=== PATIENT | female | born 1990 | race Caucasian/White ===

== ENCOUNTER → 2020-05-10 10:23 | Outpatient (CLI) | payer OTHER, SELFPAY ==
--- NOTE | ~2020-05-10 | US_ITS ---
US breast LT complete DATE: 05/10/2020 10:49 INDICATION: Left breast lump for 8 months, without change in size. Maternal great grandmother had florecita ast cancer. TECHNIQUE: Real-time and color flow imaging targeted to the left breast lump at 2:00 8 cm from nipple COMPARISON: None FINDINGS: There is a circumscribed mildly lobular hypoechoic solid mass with through transmission and posterior enhancement at the area of clinical complaint of left breast lump at 2:00 8 cm from the ni pple. There is mild internal vascularity on color flow imaging. The sonographic features are most con sistent with probable benign fibroadenoma. IMPRESSION: BI-RADS Category 3: Probable benign finding Recommendation: 6 month left targeted breast ultrasound follow-up Reviewed, dictated and finalized at [facility] Reviewed, dictated and finalized at [facility].
== END ==
PROVIDERS: PCP Family Medicine; Visit Provider Physician Assistant
DX: N63.0 Unspecified lump in unspecified breast (principal); R92.8 Other abnormal and inconclusive findings on diagnostic imaging of breast
CPT/HCPCS: 76641

== ENCOUNTER 2023-04-23 07:23 | Outpatient (RCR) | payer OTHER, SELFPAY ==
[2023-04-04 14:07] VITALS: BP 141/55; PULSE 91
[2023-04-11 14:08] VITALS: BP 137/73; PULSE 86
[2023-04-17 13:39] VITALS: BP 129/72; PULSE 79
[2023-04-23 07:48] VITALS: BP 147/84; PULSE 88
== END 2023-07-03 23:59 | disposition home or self-care (01) ==
LOC: ANHOBOP 07:23
PROVIDERS: PCP Family Medicine; Visit Provider Obstetrics & Gynecology
DX: O16.3 Unspecified maternal hypertension, third trimester (principal); Z3A.34 34 weeks gestation of pregnancy; Z3A.35 35 weeks gestation of pregnancy; Z3A.36 36 weeks gestation of pregnancy; Z3A.37 37 weeks gestation of pregnancy
CPT/HCPCS: 59025

== ENCOUNTER 2023-04-30 16:57 | Inpatient (IN) | payer OTHER, SELFPAY ==
[2023-04-30] VITALS (27 sets, daily range): BP systolic 107–150; BP diastolic 51–89; PULSE 80–92; TEMP 36.6; BMI 32.8
--- NOTE | 2023-04-30 17:26 | LDADM ---
This patient, Maya Cavanaugh, was admitted to Labor/Delivery/Recovery 108 on 04/30/23 at 16:57. Plans for labor, pain management and were discussed with patient. Patient/family oriented to hospital policies and general routines including ID bracelet, bed and alarms, visiting hours, pain management, procedures, bathroom and other care routines, personal items, smoking policy, room service/diet and guest tray routines, security routines, and visiting hours. Patient/Family are encouraged to report perceived risks to care and to ask questions if they do not understand what they are told or what they should do. See OBIX for further documentation.
[2023-04-30 17:35] LABS: Basophils Percent Auto 0.3 % (0.2-1.2); Eosinophils Absolute Auto 0.2 K/mm3 (0-0.3); Eosinophils Percent Auto 1.4 % (0-4.4); Hematocrit 34.4 % (37.0-47.0); Hemoglobin 11.4 g/dL (12.0-15.0); Immature Granulocyte Absolute 0.19 K/mm3 (0.00-0.031); Immature Granulocyte Percent A 1.8 % (0-0.5); Lymphocytes Absolute Auto 1.36 K/mm3 (0.9-3.2); Mean Corpuscular HGB Conc 33.1 g/dl (32-36); Mean Corpuscular Hemoglobin 29.9 pg (26-34); Mean Corpuscular Volume 90.3 fl (80-100); Mean Platelet Volume 9.7 fl (7.4-10.4); Monocytes Absolute Auto 0.7 K/mm3 (0.1-0.6); Monocytes Percent Auto 6.3 % (2.6-8.5); Neutrophils Absolute Auto 8.1 K/mm3 (1.3-6.7); Neutrophils Percent Auto 77.2 % (45.5-73.1); Platelet Count Result 213 k/mm3 (150-375); Red Blood Count 3.81 M/mm3 (4.2-5.4); White Blood Count 10.5 K/mm3 (4.5-10.0)
[2023-04-30] MEDS: DINOPROSTONE 10 MG VAG INSERT VAGINAL (18:05)
--- NOTE | 2023-04-30 18:46 | WPDANESEPP ---
Anes - Eval Pre Procedure Procedure: labor epidural Date/Time: 04/30/23 18:46 Surgeon: dimas Preop Diagnosis: pain during labor Pre Op Diagnosis: IOL Patient Data Age: 32 Gender: F Height: 1.73 m Weight: 98 kg Last Vital Signs Temp 36.6 C 04/30/23 17:21 Pulse 88 04/30/23 18:45 BP 134/77 04/30/23 18:45 O2 Del Method Room Air 04/30/23 17:24 Allergies Allergy/AdvReac Type Severity Reaction Status Date / Time diazepam AdvReac Unknown Unknown Verified 04/30/23 08:43 Home Medications Medication Instructions Recorded Confirmed Type docusate sodium 50 mg capsule 50 mg PO DAILY 11/27/22 04/30/23 History doxylamine succinate 25 mg tablet 25 mg PO QHS PRN Sleep 11/27/22 04/30/23 History (Unisom (doxylamine)) aspirin 81 mg tablet,delayed 81 mg PO BID 02/05/23 04/30/23 History release (Adult Low Dose Aspirin) omeprazole 20 mg capsule,delayed 20 mg PO DAILY 03/05/23 04/30/23 History release labetalol 100 mg tablet 100 mg PO BID 04/04/23 04/30/23 History Laboratory Tests 04/30/23 17:16 WBC 10.5 H K/mm3 (4.5-10.0) RBC 3.81 L M/mm3 (4.2-5.4) Hgb 11.4 L g/dL (12.0-15.0) Hct 34.4 L % (37.0-47.0) MCV 90.3 fl (80-100) MCH 29.9 pg (26-34) MCHC 33.1 g/dl (32-36) RDW 13.0 % (11.5-14.5) Plt Count 213 k/mm3 (150-375) MPV 9.7 fl (7.4-10.4) Immature Gran % (Auto) 1.8 H % (0-0.5) Neut % (Auto) 77.2 H % (45.5-73.1) Lymph % (Auto) 13.0 L % (18.3-44.2) [place] % (Auto) 6.3 % (2.6-8.5) Eos % (Auto) 1.4 % (0-4.4) Baso % (Auto) 0.3 % (0.2-1.2) Lymph # (Auto) 1.36 K/mm3 (0.9-3.2) [place] # (Auto) 0.7 H K/mm3 (0.1-0.6) Eos # (Auto) 0.2 K/mm3 (0-0.3) Baso # (Auto) 0.0 K/mm3 (0.0-0.1) Abs Immat Gran (auto) 0.19 H K/mm3 (0.00-0.031) Absolute Neuts (auto) 8.1 H K/mm3 (1.3-6.7) Absolute Nucleated RBC 0.0 K/mm3 (0.0-0.012) Nucleated RBC % 0.0 % (0.0-0.2) RPR Pending Blood Type O Positive Antibody Screen Pending Patient hx anesthesia problems: none Family hx anesthesia problems: none Results Review: All pre-operative results and documents have been reviewed as part of the pre-operative evaluation. [facility] Past Medical History Medical History Encounter for insertion of ParaGard IUD 2013? insertion Encounter for IUD removal Hypertension Irritable bowel syndrome (IBS) Suppression of menses Surgical History Surgical History History of gynecological procedure (~01/21/22) Paragard IUD removal History of left knee surgery x2 tendon repair Hx laparoscopic cholecystectomy 2013 Family History Family History Father Hypertension Mother Diabetes mellitus Hypertension Sibling Hypertension brother Grandparent Lung cancer maternal grandmother Brain malignant neoplasm paternal grandfather Other Family history of allergic disorder Family history of heart disease in male family member before age 55 Family history of kidney disease Social History Social History Smoking status: Never smoker Second hand tobacco smoke exposure: No Alcohol intake: current Drinks per week: 4 Alcohol use details: occasional Substance use: never Substance use type: does not use Lack of Transportation: No Lack of Food: Never True Current Housing: I Have Housing Concerned About Future Housing: No Difficulty Paying Gas/Electric Bills: No Difficulty Paying for Meds: No Currently Unemployed: No Education: Don't Know Difficulty w/ Childcare or Family Care: No Living arrangements: other Additional living arrangements comments: spouse Occupation/Education: occupation Additional occupation/
[2023-05-01] VITALS (183 sets, daily range): BP systolic 109–181; BP diastolic 52–106; PULSE 76–136; RESP 18–20; TEMP 36.4–37.3; O2SAT 94–100
[2023-05-01] MEDS: LABETALOL HCL 100 MG TABLET PO ×2 (05:58→19:35)
[2023-05-01] MEDS: LACTATED RINGERS 1,000 ML 125 ML IV CONT ×2 (06:50→10:09)
[2023-05-01] MEDS: AMPICILLIN 2 GM/NS 100 ML 2 GM/100 ML BAG IVPB (06:51)
[2023-05-01] MEDS: OXYTOCIN 30 UNITS/NS 500 ML 30 UNITS/500 ML BAG 4 UNITS IV CONT (07:00)
[2023-05-01] MEDS: AMPICILLIN 1 GM/NS 50 ML 1 GM/50 ML BAG IVPB ×2 (10:37→15:05)
[2023-05-01 10:54] LABS: Rapid Plasma Reagin Non-Reactive (NonReactive)
--- NOTE | 2023-05-01 18:58 | WPDHPUPDATE1 ---
History and Physical Update Update Date/Time: 05/01/23 18:58 History and Physical has been reviewed, including an updated exam of the patient. There are NO changes in the patient's condition. Risks, benefits, and alternatives have been discussed and questions answered. Patient agrees to proceed with procedure.
--- NOTE | 2023-05-01 18:58 | WPDOBADMIT ---
Obstetrics - Admit Note Admission Note: record reviewed. No pertinent additions to the history and/or any subsequent changes in the physical findings that are not consistent with the expected course of the were found. Additions to the history and/or subsequent changes in the physical findings follow. None.
--- NOTE | 2023-05-01 18:58 | PM.OBPRVD ---
OB - Delivery Note Procedure Events: Chronic Hypertension Intrapartal Events: Ineffetive Pushing/Maternal Exhaustion Induction method: Per Misoprostol Protocol Delivery augmentation: Rupture of Membranes and Pitocin Delivery monitor: Internal FHT and Internal Uterine Route of delivery: vacuum extraction Episiotomy description: None Laceration Description: Perineal - 2nd Degree Delivery repair: chromic Specimen: Yes Quantitative Blood Loss (ml): 500 Anesthesia type: Epidural Disposition: Floor Complications: None Narrative: patient prepped draped usual manner for this procedure. Maternal expulsive efforts brought the baby to +3 position and with maternal fatigue vacuum was placed and on the 2nd contraction vertex was delivered with a nuchal cord x2 noted and clamped and cut due to inability to be reduced. Placenta delivered spontaneously. Cervix vagina vulva were inspected with second-degree laceration noted. Uterus was well contracted. Vagina was approximated using 2-0 chromic running interlocking manner in the vaginal tissue deep tissue was then approximated as well and is subcuticular suture to approximate the perineum. Again uterus was well contracted no bleeding overall patient was doing well. Baby was brought to the nursery for CPAP overall was doing well. [place] Baby Weeks of gestation at delivery: 39 Infant gender: Male Weight (pounds): 8 Weight (ounces): 2 presentation: vertex Placenta delivery description: Spontaneous Cord Vessel Description: 3 Vessels, Nuchal Cord (X2) and Clamped/Cut [facility]G Delivery Billing Delivery Delivery: Delivery Charge
[2023-05-01] MEDS: OXYTOCIN 30 UNITS/NS 500 ML 30 UNITS/500 ML BAG 125 UNITS IV CONT (19:30)
--- NOTE | 2023-05-01 22:25 | PC.NURSE ---
Patient transferred to post room #286 per wheelchair from labor and delivery. Support person present. Oriented to unit, room, information board, rooming in, admission packet and security measures. Patient verbalizes understanding.
[2023-05-02] MEDS: ACETAMINOPHEN 325 MG TABLET 650 MG PO (00:09)
[2023-05-02 05:55] VITALS: BP 140/81; PULSE 95; RESP 20; TEMP 36.4
--- NOTE | 2023-05-02 08:36 | PM.OBDSVD ---
DS: Admitting Diagnosis Discharge Date 05/02/23 Admitting Diagnosis chronic hypertension intrauterine at term DS: Discharge Diagnosis Discharge Diagnosis (1) Chronic hypertension affecting : Code(s): O10.919 - Unspecified pre-existing hypertension complicating , unspecified trimester Status: Acute (2) Supervision of high risk , unspecified, third trimester: Code(s): O09.93 - Supervision of high risk , unspecified, third trimester Status: Acute OB - DS: Summary OB Procedures : None OB Procedures Intrapartum: Spontaneous Vag Delivery OB Procedures: : None Status at Discharge Functional status at discharge: independent ambulation Overall status at discharge: patient is back to baseline Time Spent with Patient Time attestation: Total time spent providing and/or coordinating discharge services: Time spent: Less than 30 minutes Exam Const: General: comfortable and no acute distress Resp: Effort & Inspection: normal respiratory effort Auscultation: clear to auscultation bilaterally Cardio: Rate: regular rate GI: GI Palp: Yes Soft to palpation Auscultation: normal bowel sounds Other: Fundus firm below umbilicus Psych: Appearance: grossly normal Mental Status: mental status grossly normal Affect: normal affect DS: Data Data Completed and Pending Pending studies at discharge: Pending at discharge 05/01/23 18:44 Surgical [PTH] Routine Labs on day of discharge: Labs from last 24 hours 04/30/23 17:16 RPR Non-reactive Discharge Plan Discharge Discharging Clinician: Javed Vaughan Patient Disposition: Home, Self-Care Activity: as tolerated and pelvic rest Diet: regular Patient Instructions: Antibiotic Form, Vaginal Delivery (DC) Stand Alone Forms: General Discharge Information Follow-up/Referrals: Stanton Sahu MD [Physician] - 1 Week (Blood pressure check) Discharge Medications: New acetaminophen 500 mg tablet 500 mg PO Q6H PRN (Reason: pain) Qty: 30 0RF ibuprofen 600 mg tablet 600 mg PO Q6H PRN (Reason: pain) Qty: 30 0RF Continued docusate sodium 50 mg capsule 50 mg PO DAILY Unisom (doxylamine) 25 mg tablet 25 mg PO QHS PRN (Reason: Sleep) aspirin [Adult Low Dose Aspirin] 81 mg tablet,delayed release (DR/EC) 81 mg PO BID omeprazole 20 mg capsule,delayed release(DR/EC) 20 mg PO DAILY labetalol 100 mg tablet 100 mg PO BID Rx Instructions: TAKE 1 TABLET BY MOUTH TWICE DAILY Date of admission: 04/30/23 16:57 Primary Care Provider: Bibiana Briggs Admitting Provider: Stanton Sahu Attending physician on admission: Stanton Sahu Condition: Stable
[2023-05-02 08:42] LABS: Hematocrit 29.8 % (37.0-47.0); Hemoglobin 9.7 g/dL (12.0-15.0)
[2023-05-02 09:05] VITALS: BP 142/71; PULSE 93; RESP 16; TEMP 36.6; O2SAT 99
[2023-05-02 09:32] VITALS: PULSE 93
[2023-05-02] MEDS: LABETALOL HCL 100 MG TABLET PO (09:32)
[2023-05-02] MEDS: DOCUSATE SODIUM 100 MG CAPSULE PO (09:33)
[2023-05-02] MEDS: WITCH HAZEL 40 PADS 1 PAD TOPICAL (09:33)
[2023-05-02] MEDS: BENZOCAINE 20% AER SPR (*SP) 56 GM CAN 1 SPRAY TOPICAL (09:33)
[2023-05-02] MEDS: POLYSACCHARIDE IRON COMPLEX 150 MG CAPSULE PO (09:33)
== END 2023-05-02 09:23 | disposition home or self-care (01) | DRG 807 ==
LOC: ANHLDR 05-01 11:47 → ANHOB2 05-02 08:38 → ANHLDR 05-05 11:14 → ANHOB2 05-05 11:14
PROVIDERS: Admitting Provider Obstetrics & Gynecology; PCP Family Medicine; Visit Provider Student in an Organized Health Care Education/Training Program
DX: O10.92 Unspecified pre-existing hypertension complicating childbirth (principal); Z37.0 Single live birth; O70.1 Second degree perineal laceration during delivery; O69.1XX0 Labor and delivery complicated by cord around neck, with compression, not applicable or unspecified; O99.824 Streptococcus B carrier state complicating childbirth; Z3A.39 39 weeks gestation of pregnancy
CPT/HCPCS: 36415; 85014; 85018; 85025; 86592; 86850; 86900; 86901; A9270; J0290; J2590; J2795; J7120